=== PATIENT | female | born 1955 | race Caucasian/White ===

== ENCOUNTER → 2016-09-14 | Outpatient (CLI) | payer BC ==
--- NOTE | 2016-09-14 11:13 | US ---
HISTORY: Multinodular goiter Study: Ultrasound of the thyroid Comparison: None Technique: Multiple brown scale images of the thyroid were obtained. Findings: The right lobe of the thyroid measures 4.9 x 2.3 x 2.8 cm. At least two nodules are noted within the right lobe of the thyroid. The larger nodule measures 1.5 x 1.8 x 2.9 cm. The smaller nodule measur es 1.5 x 1.5 x 2.5 cm. The left lobe of the thyroid measures 4.8 x 1.8 x 2.9 cm. The isthmus measure s 0.9 cm. IMPRESSION: 1. Right-sided thyroid nodules as noted above. Reported By:
== END ==
LOC: RAD 10:08
PROVIDERS: ATTEND Physician Assistant Medical
DX: E04.2 Nontoxic multinodular goiter (principal)
CPT/HCPCS: 76536

== ENCOUNTER → 2017-03-22 | Outpatient (CLI) | payer BC ==
--- NOTE | 2017-03-22 13:38 | US ---
History: Six-month follow-up, thyroid nodules Technique: Multiple static grayscale and color Doppler images of the thyroid were obtained. Comparison: Thyroid ultrasound dated 09/14/2016. Findings: The right thyroid lobe measures 6.2 x 3.3 x 2.9 cm. The left thyroid lobe measures 5.2 x 2.7 x 2.1 cm . Isthmus measures 7 mm in thickness. Within the right thyroid lobe there is a solid mildly hypoechoic nodule which measures 1.5 x 1.4 by 1 .6 cm. There is a part solid part cystic nodule which is predominantly solid measuring 1.5 x 1.5 by 1 .6 cm. Additional part solid part cystic nodule measures 1.3 cm in diameter. There is a solid mildly hypoechoic nodule with a peripheral halo within the posterior aspect of the right thyroid lobe which measures 1.5 x 1.6 cm. This nodule was not demonstrated on the prior ultrasound. This nodule is seen on series 1, image 86. There is a hypoechoic nodule within the left thyroid lobe which measures 10 x 8 mm. There is a solid hypoechoic nodule within the posterior left thyroid lobe measured 1.3 x 1.1 cm . There is a peripherally calcified nodule within the left thyroid lobe measuring 7 x 7 mm. Impression: 1. Multiple bilateral thyroid nodules are noted as discussed above. The largest 2 nodules measure 1.6 cm in diameter within the thyroid lobe. One of these 2 nodules is seen posteriorly, demonstrates a h efraín, and was not demonstrated on previous ultrasound. Ultrasound-guided fine-needle aspiration biopsy of these 2 dominant nodules is suggested as clinically indicated. A follow-up ultrasound is also rec ommended in 6-12 months to document stability of the additional nodules 2. Thyromegaly Reported By:
== END ==
LOC: RAD 09:42
PROVIDERS: ATTEND Physician Assistant Medical
DX: E04.2 Nontoxic multinodular goiter (principal)
CPT/HCPCS: 76536